=== PATIENT | female | born 1985 | race African-American/Black ===

== ENCOUNTER 2016-12-13 07:29 | Inpatient (IN) ==
[2016-12-13] MEDS ORDERED: FAMOTIDINE 20 MG/2 ML VIAL IV PRN (07:55)
[2016-12-13] MEDS ORDERED: CITRIC ACID/SODIUM CITRATE 30 ML UDCUP PO PRN (07:55)
[2016-12-13] MEDS: LACTATED RINGERS 1,000 ML IV SCH ×3 (08:10→22:12)
[2016-12-13 08:13] LABS: Basophils % 0.2 % (0.0-0.8); Eosinophils # 0.1 10*3/uL (0.0-0.87); Eosinophils % 2.2 % (0.00-10.9); Hematocrit 31.6 VOL% (35.7-47.0); Hemoglobin 10.8 GM/DL (12.0-16.0); Immature Granulocytes % 0.4 %; Immature Granulocytes Absolute 0.02 #; Lymphocytes # 1.3 10*3/uL (1.4-4.0); Lymphocytes % 26.6 % (21.3-54.2); Mean Corpuscular HGB Conc 34.2 GM/DL (32-36); Mean Corpuscular Hemoglobin 31 PG (27-34); Mean Corpuscular Volume 89.5 FL (87-102); Mean Platelet Volume 12.1 FL (9.6-12.0); Monocytes # 0.5 10*3/uL (0.11-0.8); Monocytes % 9.1 % (1.7-12.7); Neutrophils % 61.5 % (38.7-73.9); Platelet Count 117 T/CUMM (130-400); Red Blood Count 3.53 MC/CUMM (3.8-5.5); Red Cell Distribution Width 13.9 % (9.3-17.3); White Blood Count 4.9 T/CUMM (4-12)
[2016-12-13 08:55] LABS: Bilirubin,Total 0.8 MG/DL (0.2-1.0); Osmolality,Calculated 272.5 MOS/KG (273-304); Potassium 3.7 MMOL/L (3.5-5.1); Total Protein 6.8 G/DL (6.4-8.3)
[2016-12-13] MEDS ORDERED: OXYTOCIN/LR 20 UNIT/1,000 ML BAG IV ONE ×4 (11:06→15:25)
--- NOTE | 2016-12-13 11:30 | OB/GYN History & Physical ---
History of Present Illness Chief complaint: Scheduled repeat section History of present illness: Ms. Marino is a 31 year old female at 39 plus weeks who presents for repeat section and tubal. course uneventful. No medical history. Section x 2. x 1. R/B/A to surgery and tubal reviewed. Pt verbalized understanding and is willing to proceed Home Medications Medication Instructions Recorded Confirmed Type Iron,Carbonyl/Ascorbic Acid 1 tablet PO DAILY 09/06/16 12/13/16 History [Icar-C Tablet] Vits #90/Iron Fum/FA 1 tablet PO DAILY 09/06/16 12/13/16 History [ Formula Tablet] Allergies Allergy/AdvReac Type Severity Reaction Status Date / Time Penicillins Allergy Severe ANAPHYLAXIS Verified 12/13/16 10:11 acetaminophen Allergy Verified 12/13/16 10:11 [From Tylenol-Codeine #3] codeine Allergy Verified 12/13/16 10:11 [From Tylenol-Codeine #3] Medical,Surgical,& Family Hx - Surgical History Reproductive Surgeries: Surgical HX of;: Section (x2) - Family History Family History: Reports;: Family Hypertension (mother) - Social History Smoking Status: Never smoker Frequency of Alcohol Use: None 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 Absent: tenderness (gravid, FHTs reassuirng) Assessment and Plan (1) 39 weeks gestation of Status: Acute Current Visit: Yes (2) H/O section Status: Acute Assessment and plan: Plan repeat section with tubal Current Visit: Yes (3) Unwanted fertility Status: Acute Current Visit: Yes Results - Labs CBC & BMP: 12/13/16 08:04 12/13/16 08:04
[2016-12-13] MEDS ORDERED: fentaNYL 100 MCG/2 ML VIAL ONE (12:47)
[2016-12-13] MEDS ORDERED: MORPHINE 10 MG/10 ML VIAL ONE (12:48)
[2016-12-13] MEDS ORDERED: MIDAZOLAM 2 MG/2 ML VIAL ONE (12:48)
[2016-12-13] MEDS ORDERED: ONDANSETRON 4 MG/2 ML VIAL ONE (12:49)
--- NOTE | 2016-12-13 12:55 | Operative Note ---
Date of procedure: 12/13/16 Pre-op diagnosis: 1. 39 wk IUP 2. H/o section x 2, desired repeat 3. Undesired fertility Post-op diagnosis: same Procedure: INDICATIONS: Patient admitted for repeat section with tubal ligation [ ] at 39 weeks gestation. PROCEDURE PERFORMED: delivery with bilateral tubal ligation FINDINGS: Patient was noted to have a lower uterine segment window. Able to see the amniotic fluid and fetus through the uterus prior to incision. Normal tubes and ovaries. Male in cephalic presentation weighing 7 pounds and 2 ounces with Apgars of 8 and 9] TECHNIQUE: Patient taken to the OR where spinal anesthesia placed and adequate. Sma placed. Patient prepped and draped in sterile fashion. Incision was made 2 finger breadths above symphysis pubis [through previous incision] and carried down to the underlying fascia. Fascia scored in the midline and incision extended to either side with March scissors. Erin clamps then placed superiorly and inferiorly and fascia dissected away from the rectus. Peritoneum then entered sharply. Incision extended bluntly. Camilo retractor placed. Unable to create bladder flap given that patient's uterine segment was so thin. Uterus entered sharply and the incision extended bluntly. Membranes ruptured upon entry into the uterus. [Clear fluid noted]. delivered in cephalic presentation. Handed off to awaiting NICU team after cord clamped and cut. 30 seconds passed before cord was clamped and cut [ Placenta delivered.] [Uterus cleared of clots and debris]. Uterus closed in 2 layers with Vicryl suture. Pelvis copiously irrigated. Attention turned to tubal ligation. Left tube identified with Halls clamp and fimbriated end noted. Suture through the mesosalpinx with 2 oh plain suture. Tubes tied. Second piece of suture used to ligate the tube for a second time. Metzenbaum scissors inserted through the knuckle in the mesosalpinx. Tube cut and handed off. Site noted to be hemostatic. Attention turned to the opposite side where in a similar fashion Halls used to identify the fimbriated end and grasped the tube. Suture used to ligate twice. Scissors used to go through the mesosalpinx of the knuckle and tube handed off. Hemostasis noted. [Sugicel] placed over uterine incision.] Fascia closed from either side to midline with Vicryl suture. Skin closed with [Insorb radha]. Sponge, lap and needle counts correct x2. Patient taken to recovery in stable condition. Anesthesia: regional Surgeon / Physician: Breanna Kate Senior Web Applications Developer: Lyndsey Green Estimated blood loss: other (400 cc) Specimens: other (Segment of both tubes) Condition: stable Disposition: PACU Results - Labs CBC & BMP: 12/13/16 08:04 12/13/16 08:04 Discharge Plan - Discharge Medications No Action Vits #90/Iron Fum/FA [ Formula Tablet] 1 tablet PO DAILY Iron,Carbonyl/Ascorbic Acid [Icar-C Tablet] 1 tablet PO DAILY - Follow Up or Referral - Forms/Instructions
[2016-12-13 12:57] LABS: Apearance,Urine CLEAR (Clear); Bilirubin,Urine Negative (Negative); Blood, Urine Negative (Negative); Glucose,Urine (UA) Negative (Negative); Ketones,Urine Negative (Negative); Mucus,Urine Occasional /LPF (Occasional); Nitrite,Urine Negative (Negative); Protein,Urine Negative; RBC,Urine 1 /HPF (0-4); Squamous Epithelial Cell,Urine Occasional /HPF (0-10); Urine Color Straw (Yellow); Urine Specific Gravity 1.005 (1.001-1.035); Urine Urobilinogen < 2.0 EU/DL (0.2-1.0); WBC,Urine <1 /HPF (0-6)
[2016-12-13] MEDS ORDERED: ACETAMINOPHEN 1,000 MG/100 ML VIAL IV ONE (13:02)
[2016-12-13] MEDS ORDERED: LACTATED RINGERS 2,000 ML IV ONE (13:02)
[2016-12-13] MEDS ORDERED: MAGNESIUM HYDROXIDE SUSP 30 ML UDCUP PO PRN (15:25)
[2016-12-13] MEDS ORDERED: RHO(D) IMMUNE GLOBULIN 300 MCG SYRINGE IM ONE (15:25)
[2016-12-13] MEDS ORDERED: ONDANSETRON 4 MG/2 ML VIAL IV PRN (15:25)
[2016-12-13] MEDS ORDERED: SIMETHICONE CHEW 80 MG TABLET PO PRN (15:25)
[2016-12-13] MEDS: IBUPROFEN 800 MG TABLET PO SCH (18:27)
[2016-12-13] MEDS ORDERED: diphenhydrAMINE 50 MG/1 ML VIAL IV PRN (18:28)
[2016-12-13] MEDS: DOCUSATE SODIUM 100 MG CAPSULE PO SCH (23:50)
[2016-12-14] MEDS: IBUPROFEN 800 MG TABLET PO SCH ×3 (04:21→22:20)
[2016-12-14 05:01] LABS: Basophils % 0.2 % (0.0-0.8); Eosinophils # 0.1 10*3/uL (0.0-0.87); Eosinophils % 1.4 % (0.00-10.9); Hematocrit 31.9 VOL% (35.7-47.0); Hemoglobin 10.8 GM/DL (12.0-16.0); Immature Granulocytes % 0.6 %; Immature Granulocytes Absolute 0.04 #; Lymphocytes # 0.9 10*3/uL (1.4-4.0); Lymphocytes % 13.5 % (21.3-54.2); Mean Corpuscular HGB Conc 33.9 GM/DL (32-36); Mean Corpuscular Hemoglobin 31 PG (27-34); Mean Corpuscular Volume 91.4 FL (87-102); Mean Platelet Volume 11.8 FL (9.6-12.0); Monocytes # 0.5 10*3/uL (0.11-0.8); Neutrophils # 5.1 10*3/uL (1.4-7.4); Neutrophils % 77.3 % (38.7-73.9); Platelet Count 105 T/CUMM (130-400); Red Blood Count 3.49 MC/CUMM (3.8-5.5); Red Cell Distribution Width 13.8 % (9.3-17.3); White Blood Count 6.5 T/CUMM (4-12)
[2016-12-14] MEDS: LACTATED RINGERS 1,000 ML IV SCH (05:31)
--- NOTE | 2016-12-14 09:22 | Anesthesia Post-Op ---
Anesthesia Post OP - Post Ansesthetic Evaluation Patient seen in post op: Yes Resp: within normal limits CV: within normal limits Mental: within normal limits Temp: within normal limits [id number]: within normal limits Nausea and Vomiting: within normal limits Pain: within normal limits
[2016-12-14] MEDS: DOCUSATE SODIUM 100 MG CAPSULE PO SCH ×2 (09:23→22:20)
[2016-12-14] MEDS: MULTIVITAMIN (PRENATAL) TABLET PO SCH (09:23)
--- NOTE | 2016-12-14 11:22 | Pathology Report from [facility] ---
[facility] ACCESSION # : [id number] PATIENT NAME : Pratima Baker ORDERING DR : Breanna Kate MD CLINICAL HX: IUP @ 39 wks, previous C/S, requested sterilization POST-OP DX: Same SPECIMEN INFO: #1 RT segment fallopian tube #2 LT segment fallopian tube GROSS DESCRIPTION: #1 RT FALLOPIAN TUBE consists of a 2.2 x 0.6 cm unfimbriated fallopian tube segment. A sales promotion representative section submitted in cassette #1.#2 LT FALLOPIAN TUBE consists of a 1.8 x 0.7 cm unfimbriated fallopian tube segment. A sales promotion representative section submitted in cassette #2. DIAGNOSIS FOR PRATIMA BAKER: #1 RIGHT FALLOPIAN TUBE & #2 LEFT FALLOPIAN TUBE : Complete cross sections of fallopian tubes. COLLECTED DATE: 12/13/2016 [facility] REPORT DATE: 12/14/2016 ELECTRONICALLY SIGNED BY: Chani Gooden III, M.D. 12/14/2016 - 10:05:49 [facility]
--- NOTE | 2016-12-14 12:05 | Progress Note ---
Assessment and Plan (1) 39 weeks gestation of Status: Acute Current Visit: Yes (2) H/O section Status: Acute Assessment and plan: Plan repeat section with tubal Current Visit: Yes (3) Unwanted fertility Status: Acute Current Visit: Yes (4) Status post repeat low transverse section Status: Acute Assessment and plan: POD#1s/p repeat section wth tubal Doing ok continue care Current Visit: Yes Family Medicine PN Sub Interval history: No complaints Exam (Progress Note) - Constitutional Vitals: Period Temp Pulse Resp BP Sys/Sanchez Pulse Ox Last 24 Hr 97.1 F-98.7 F 49-60 18-20 111-149/63-89 95-99 General appearance: normal weight, no acute distress - Head Head exam: Present: normal inspection - Eye Eye exam: Present: EOMI - GI/Abdominal GI/Abdominal exam: Present: other (incisionintact) Results - Labs CBC & BMP: 12/14/16 04:27 12/13/16 08:04
[2016-12-15] MEDS: DOCUSATE SODIUM 100 MG CAPSULE PO SCH ×2 (10:00→21:43)
[2016-12-15] MEDS: MULTIVITAMIN (PRENATAL) TABLET PO SCH (10:00)
--- NOTE | 2016-12-15 11:07 | OB/GYN Progress Note ---
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 No issue per nursing report. 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
[2016-12-15] MEDS: IBUPROFEN 800 MG TABLET PO SCH (21:43)
[2016-12-16] MEDS: IBUPROFEN 800 MG TABLET PO SCH ×2 (04:26→11:27)
[2016-12-16] MEDS: MULTIVITAMIN (PRENATAL) TABLET PO SCH (09:03)
[2016-12-16] MEDS: DOCUSATE SODIUM 100 MG CAPSULE PO SCH (09:03)
--- NOTE | 2016-12-16 09:20 | Discharge Summary ---
Hospital Course - Hospital Course Hospital Course: Routine post op course without complication Feels well. Ready to go home Diagnosis - Discharge Diagnosis (1) 39 weeks gestation of Status: Acute (2) H/O section Status: Acute (3) Unwanted fertility Status: Acute (4) Status post repeat low transverse section Status: Acute Discharge Plan - Discharge Data Disposition: Disch To Home/Self Care Condition at Discharge: Stable Discharge Diet: advance to your usual diet Activity: other (routine ) Hygiene: may shower Weight Bearing at Discharge: full weight bearing Driving: not for (2 weeks) Contact your physician if you experience:: fever over 101, Difficulty voiding, Redness or swelling - Discharge Medications New HYDROcodone/ACETAMIN 5-325 [[place] 5-325] 2 tablet PO Q6H PRN #20 tablet PRN Reason: Pain Severe (8-10) Ibuprofen Tab [Motrin Tab] 800 mg PO Q8H #30 tablet Docusate Sodium Cap [Colace Cap] 100 mg PO BID #30 capsule No Action Vits #90/Iron Fum/FA [ Formula Tablet] 1 tablet PO DAILY Iron,Carbonyl/Ascorbic Acid [Icar-C Tablet] 1 tablet PO DAILY - Follow Up or Referral - Forms/Instructions Exam - Constitutional Vitals: Period Temp Pulse Resp BP Sys/Sanchez Pulse Ox Last 24 Hr 96.5 F-98.3 F 57-70 18-20 116-129/73-83 97-100 General appearance: normal weight, no acute distress - Head Head exam: Present: normal inspection - Eye Eye exam: Present: EOMI Pupils: Present: HUNTER - GI/Abdominal GI/Abdominal exam: Present: soft, other (incision intact) DS: Provider Date of admission: 12/13/16 07:29 Primary care physician: Yara Erazo Attending physician on admission: Breanna Kate MD Consults: 12/13/16 15:25 Consult to Electric Shipyard Operator [CONS] Routine Consult Electric Shipyard Operator: Breast Feeding Discharging clinician: Breanna Kate MD
[2016-12-16 09:27] VITALS: BP 123/73
== END 2016-12-16 20:15 | disposition home or self-care (01) | DRG 540 ==
LOC: N.LD 07:29 → N.OB 15:01
PROVIDERS: ADMIT Obstetrics & Gynecology; ATTEND Obstetrics & Gynecology